=== PATIENT | female | born 1960 | race African-American/Black ===

== ENCOUNTER 2016-10-15 14:00 | Emergency (ER) | payer SELFPAY ==
[~2016-10-15] VITALS: Ht 160 cm; Wt 68.9 kg
[~2016-10-15 14:00] MED LIST: LISINOPRIL AND1 TA1 PO; LISINOPRIL2.5 M1 PO; TENORMIN25 MG PO
[2016-10-15 14:15] VITALS: BP 150/65
--- NOTE | 2016-10-15 15:52 | NUR ---
CALLED PT TO ROOM. PATIENT LEFT WITHOUT BEING SEEN BY DR. LIMON. NO FURTHER CARE PROVIDED FOR PATIENT.
== END 2016-10-15 15:52 | disposition left against medical advice (07) ==
LOC: MED 14:00
DX: G43.909 Migraine, unspecified, not intractable, without status migrainosus (principal); Z53.21 Procedure and treatment not carried out due to patient leaving prior to being seen by health care provider

== ENCOUNTER 2018-02-06 17:38 | Emergency (ER) | payer SELFPAY ==
[~2018-02-06] VITALS: Ht 160 cm; Wt 70.3 kg
[~2018-02-06 17:38] MED LIST changes: +ATEN25TA7 PO; -LISINOPRIL AND1 TA1 PO; -LISINOPRIL2.5 M1 PO; -TENORMIN25 MG PO; +[UNRECOGNIZED DRUG - CODE] PO
[2018-02-06 17:48] VITALS: BP 135/76
--- NOTE | 2018-02-06 17:57 | NUR ---
PT AMBULATES TO BED 5
--- NOTE | 2018-02-06 18:00 | NUR ---
57Y/F BIB SELF C/O PAIN LEFT KNEE, LOWER BACK, RIGHT SHOULDER S/P FALL X YESTERDAY. DENIES LOC. BED DOWN; BEDRAIL UP X 1; ER MD AWARE AND NOTIFIED OF PT STATUS. MED HX: HTN MED: ATENOLOL, HYDROCHLOROTHIAZIDE,ASPIRIN
--- NOTE | 2018-02-06 18:03 | NUR ---
Patient being evaluated by physician at bedside.
[2018-02-06] MEDS ORDERED: traMADol 50 MG TAB PO ONE (18:05)
[2018-02-06 19:11] VITALS: BP 133/75
== END 2018-02-06 19:11 | disposition home or self-care (01) ==
LOC: MED 17:38
DX: S46.911A Strain of unspecified muscle, fascia and tendon at shoulder and upper arm level, right arm, initial encounter (principal); S39.012A Strain of muscle, fascia and tendon of lower back, initial encounter; S80.02XA Contusion of left knee, initial encounter; S70.02XA Contusion of left hip, initial encounter; I10 Essential (primary) hypertension; Z88.6 Allergy status to analgesic agent; Z88.3 Allergy status to other anti-infective agents; Z88.8 Allergy status to other drugs, medicaments and biological substances; Z79.899 Other long term (current) drug therapy; W19.XXXA Unspecified fall, initial encounter; Y93.89 Activity, other specified; Y92.89 Other specified places as the place of occurrence of the external cause; Y99.8 Other external cause status
CPT/HCPCS: 72170; 73030; 99284; Q0092